=== PATIENT | female | born 1970 | race Caucasian/White ===

== ENCOUNTER 2018-01-15 21:53 | Emergency (ER) | payer BC ==
--- NOTE | 2018-01-15 22:20 | EDM.PDOC ---
ED HPI GENERAL MEDICAL PROBLEM - General Chief Complaint: Lower Extremity Injury/Pain Stated Complaint: REMOVE CAST LT FOOT Time Seen by Provider: 01/15/18 22:07 - History of Present Illness INITIAL COMMENTS - FREE TEXT/NARRATIVE: HISTORY AND PHYSICAL: History of present illness: Patient's 47-year-old white female who presents with a concern of left leg discomfort she's been casted for approximate 5 week she did have a new cast reapplied recently patient states she's had increasing discomfort and is concerned about how tight the cast feels. There is been no fever chills nausea vomiting or other complaints Review of systems: As per history of present illness and below otherwise all systems reviewed and negative. Past medical history: As per history of present illness and as reviewed below otherwise noncontributory. Surgical history: As per history of present illness and as reviewed below otherwise noncontributory. Social history: No reported history of drug or alcohol abuse. Family history: As per history of present illness and as reviewed below otherwise noncontributory. Physical exam: HEENT: Atraumatic, normocephalic, pupils reactive, negative for conjunctival pallor or scleral icterus, mucous membranes moist, throat clear, neck supple, nontender, trachea midline. Lungs: Clear to auscultation, breath sounds equal bilaterally, chest nontender. Heart: S1S2, regular, negative for clicks, rubs, or JVD. Abdomen: Soft, nondistended, nontender. Negative for masses or hepatosplenomegaly. Negative for costovertebral tenderness. Pelvis: Stable nontender. Genitourinary: Deferred. Rectal: Deferred. Extremities: Cast noted left lower extremity patient has good capillary refill neurovascular exam her digits are unremarkable.. Neuro: Awake, alert, oriented. Cranial nerves II through XII unremarkable. Cerebellum unremarkable. Motor and sensory unremarkable throughout. Exam nonfocal. Diagnostics: X-ray left ankle venous Doppler left lower extremity Therapeutics: Cast removal Impression: #1 left lower extremity pain #2 history of fracture with casting status post 5 weeks Definitive disposition and diagnosis as appropriate pending reevaluation and review of above. left lower leg Pain Score (Numeric/FACES): 6 - Related Data Allergies Allergy/AdvReac Type Severity Reaction Status Date / Time No Known Allergies Allergy Verified 01/15/18 22:03 Home Meds: Home Meds Hormone Patch 01/15/18 [History] Review of Systems - Review of Systems Review Of Systems: ROS reveals no pertinent complaints other than HPI. ED EXAM, GENERAL - Physical Exam Exam: See Below (See dictation) Course - Vital Signs Text/Narrative:: Cast was removed small swelling noted no skin breakdown noted CMS and neurovascular exams unremarkable venous Doppler was negative x-ray demonstrates nondisplaced distal fibula fracture without callus formation patiently put in a boot and continue crutches as discussed follow-up with Dr. Tom in a.m. Last Recorded V/S: Last Vital Signs Temp 36.7 C 01/15/18 22:04 Pulse 80 01/15/18 22:04 Resp 14 01/15/18 22:04 BP 114/63 01/15/18 22:04 Pulse Ox 97 01/15/18 22:04 - Orders/Labs/Meds Orders: Active Orders 24 hr Category Date Time Status Ankle Min 3V Lt [CR] Stat Exams 01/15/18 22:21 Taken Venous Doppler Lwr Ext Lt [US] Stat Exams 01/15/18 22:21 Taken Departure - Departure Time of Disposition: 23:41 Disposition: Home, Self-Care 01 Condition: Good Clinical Impression: Ankle fracture - Discharge Information Referrals: PCP,None [Primary Care Provider] - Forms: ED Department Discharge Additional Instructions: The following information is given to patients seen in the emergency department who are being discharged to home. This information is to outline your options for follow-up care. We provide all patients seen in our emergency department with a follow-up referral. The need for follow-up, as well as the timing and circumstances, are variable depending upon the specifics of your emergency department visit. If you don't have a primary care physician on staff, we will provide you with a referral. We always advise you to contact your personal physician following an emergency department visit to inform them of the circumstance of the visit and for follow-up with them and/or the need for any referrals to a consulting specialist. The emergency department will also refer you to a specialist when appropriate. This referral assures that you have the opportunity for followup care with a specialist. All of these measure are taken in an effort to provide you with optimal care, which includes your followup. Under all circumstances we always encourage you to contact your private physician who remains a resource for coordinating your care. When calling for followup care, please make the office aware that this follow-up is from your recent emergency room visit. If for any reason you are refused follow-up, please contact the [facility] emergency department at and asked to speak to the emergency department charge nurse. Boot/crutches as directed follow-up orthopedic surgery as discussed no weightbearing Motrin/Tylenol as directed and return as needed as discussed[] - My Orders Last 24 Hours: My Active Orders 01/15/18 22:21 Ankle Min 3V Lt [CR] Stat Venous Doppler Lwr Ext Lt [US] Stat - Assessment/Plan Last 24 Hours: My Active Orders 01/15/18 22:21 Ankle Min 3V Lt [CR] Stat Venous Doppler Lwr Ext Lt [US] Stat
--- NOTE | 2018-01-16 13:57 | US ---
EXAM DATE: 01/15/18 PATIENT'S AGE: 47 Patient: CORDELIA DIAL Facility: [place], [place] Site . Site : 1970 Study: US Extremity Venous [id number]/15/2018 11:16:08 PM Ordering Physician: Jean Barnhart Final Report: INDICATION: LT CALF PAIN AND SWELLING TECHNIQUE: Ultrasound venous duplex lower left extremity. Compression venous exam was performed using perkins-scale, color Doppler, and spectral Doppler analysis. COMPARISON: None FINDINGS: Sonographic imaging demonstrates the left common femoral, deep femoral, superficial femoral, popliteal, posterior tibial and greater saphenous and the contralateral right common femoral veins to be fully compressible with normal color Doppler blood flow. Nonspecific subcutaneous edema. IMPRESSION: No evidence for deep venous thrombosis within either lower extremity. Dictated by Carloz Hopper MD @ 01/15/2018 11:18:29 PM Dictated by: Carloz Hopper MD @ 01/15/2018 23:18:39 (Electronic Signature) Report Signed by Proxy. AMALIA
--- NOTE | 2018-01-16 14:02 | CR ---
EXAM DATE: 01/15/18 PATIENT'S AGE: 47 Patient: CORDELIA DIAL Facility: [place], [place] Site . Site : 1970 Study: XRay Extremity Left ANKLE [id number]/25/2018 11:23:53 PM Ordering Physician: Jean Barnhart Final Report: Indication: Pain. History of fracture Technique: Three views of the left ankle Comparison: 12/11/2017 and 12/25/2017 Findings/Impression: Bones: An oblique distal fibular fracture again seen with persistent fracture lucency. Callus formation is not clearly seen. Mild disuse osteopenia in the distal fibula. A curvilinear calcific/ossific density along the dorsum of the tarsometatarsal joint region on the lateral view, of unclear chronicity. Correlate for focal tenderness to exclude a fracture fragment. No dislocation. Joint spaces: Unremarkable. Soft tissues: Unremarkable. Dictated by Bill Larkin MD @ 01/15/2018 11:29:52 PM Dictated by: Bill Larkin MD @ 01/15/2018 23:29:56 (Electronic Signature) MTDD
== END 2018-01-15 23:50 | disposition home or self-care (01) ==
LOC: MW.ED 21:53
DX: M79.605 Pain in left leg (principal)
CPT/HCPCS: 73610-26-LT; 73610-LT; 93971-26-LT; 93971-LT; 99284-25